=== PATIENT | male | born 1985 | race Caucasian/White ===

== ENCOUNTER 2020-08-25 20:29 | Emergency (ER) | payer MEDICAID, SELFPAY ==
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
[2020-08-25 20:44] VITALS: BP 119/77; PULSE 76; RESP 20; TEMP 37; O2SAT 98; BMI 27.1
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
[2020-08-25] MEDS: Acetaminophen 325 MG TABLET 650 MG PO (21:52)
[2020-08-25 22:28] VITALS: BP 123/87; PULSE 88; RESP 14; TEMP 36.7; O2SAT 99
== END 2020-08-25 23:22 | disposition other institution (70) ==
PROVIDERS: Emergency Provider Emergency Medicine
DX: S09.90XA Unspecified injury of head, initial encounter (principal); S00.03XA Contusion of scalp, initial encounter; Y00.XXXA Assault by blunt object, initial encounter; Y93.9 Activity, unspecified; Y92.9 Unspecified place or not applicable; Y99.9 Unspecified external cause status
CPT/HCPCS: 70450; 72125; 99284

== ENCOUNTER 2023-01-03 20:41 | Emergency (ER) | payer MEDICAID, SELFPAY ==
--- NOTE | 2023-01-03 20:43 | ED.GENADULT ---
HPI - General Adult General Chief complaint: General Medical Stated complaint: Bugs crawling in body Time Seen by Provider: 01/03/23 22:39 Source: patient Mode of arrival: ambulatory Limitations: no limitations History of Present Illness HPI narrative: 37-year-old male who presents emergency department for evaluation bugs under his skin. Patient states that he sees were arms and bugs under his skin. States that they are moving under his skin. Patient has been picking out these bugs. He denies using any street drugs specifically denied using cocaine, methamphetamine, heroin. He does have a history of anxiety and chronic back pain. He states that he takes Klonopin, hydroxyzine and gabapentin., Related Data Previous Rx's Medication Instructions Recorded permethrin 5 % topical cream 1 appl topical Q14D 2 doses #60 01/04/23 grams Allergies Allergy/AdvReac Type Severity Reaction Status Date / Time No Known Allergies Allergy Verified 08/25/20 20:54 [No Known Allergies*] Review of Systems Review of Systems: Yes all other systems are reviewed and are negative [facility] Past Medical History [facility] Narrative: Past medical history: Anxiety, chronic back pain social history: He denies tobacco, alcohol and drug use. Social History Social History Alcohol intake: current Alcohol intake frequency: holidays/special occasions only Smoked in Last 30 Days: Yes Use of substances other than those prescribed or required for medical reasons: Yes Substance Use Type: Marijuana Advance Directives: No Advance Directives Information Provided: No Physical Exam ED Vital Signs: Vital Signs - 24 hr 01/03/23 20:47 Temperature 98.1 F Pulse Rate 62 Respiratory Rate 18 Blood Pressure 131/81 Pulse Oximetry 98 Oxygen Delivery Method Room Air BMI result Body Mass Index 25.1 Vital signs were normal General: Patient is very anxious, he is agitated Skin: Patient has picked at multiple areas on his arms and hands where he has tried to dig out bugs. He is placed multiple samples on a piece of tissue paper to show me. There are no worms or bugs but he has piece of skin, fat and blood on the tissue paper. Course Course Course Narrative: This is a rapid medical exam: Additional HPI, ROS, PE not included below will be deferred to primary provider. Patient is a 37-year-old male presenting to the emergency department stating that a friend slept at his house two nights ago, today feels as though he has bugs crawling under his skin and throughout his body. States that he feels as though they are in his eyeballs, in his nose, in his ears. States that he is visualizing tiny insects all over his skin. Patient is hyperverbal in triage, unable to sit still, denies any alcohol or drug use. No obvious rashes or bites visible, patient repeatedly pointing to areas of dirt particles on his skin and stating that those are the bugs he is referring to. Medications Administered Discontinued Medications Generic Name Dose Route Start Last Admin Trade Name Peter PRN Reason Stop Dose Admin Bacitracin 1 appl 01/03/23 23:29 01/03/23 23:46 Bacitracin Oint 0.9 Gm Packet TOPICAL 01/03/23 23:30 1 appl ONCE ONE Administration Protocol Medical Decision Making Medical Decision Making MDM Narrative: 37-year-old male who presents emergency department for evaluation subcutaneous bugs/worms. 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 He denies any drug use however I suspect that he has probable using methamphetamine or cocaine which is causing the symptoms. I offered to give the patient anti anxiety medicine such as Ativan or hydroxyzine here in the emergency department but he states that he has these at home. The patient's wounds were cleaned and dressed with bacitracin and bandages. Patient was discharged home. Differential Diagnosis Differential diagnosis includes was not limited to delusional parasitosis, heroin use disorder, cocaine use disorder, methamphetamine use Discharge Plan Discharge Clinical Impression: Delusions of parasitosis Patient Disposition: Home, Self-Care Additional Instructions: There were no bugs in your skin. Sometimes when people are anxious or are doing drugs, they have a feeling like there are bugs and there skin and then start picking there skin. This is called delusional parasitosis. If your using street drugs you need to stop using them otherwise you will continue to have the symptoms. Take your or hydroxyzine as prescribed and that should help with anxiety. Follow-up with your doctor in 2 days. Please return to the emergency department if your symptoms get worse or if you develop any symptoms that are concerning to you. Prescriptions: No Action permethrin 5 % cream 1 appl topical Q14D Qty: 60 0RF Rx Instructions: apply second treatment 14 days after first treatment if live lice remain Interventions: ED Discharge Assessment Last Done: 01/03/23 23:50 Discharge Date/Time: 01/03/23 23:50
[2023-01-03 20:47] VITALS: BP 131/81; PULSE 62; RESP 18; TEMP 36.7; O2SAT 98; BMI 25.1
--- NOTE | 2023-01-03 21:47 | PC.NURSE ---
pt called junior copywriter to room, several crater shaped-open areas now present on pt forearms, pt sts that he is pulling the bugs out and they just go back in under (his) fingernails. junior copywriter observed several small chunks of skin on a tissue. enouraged pt not to pick at himself until evaluated by provider. pt continues to be anxious, hyper-verbal, perseverating on 2in in diam lump on right forearm, cool to touch, and hard. pt awaiting ED provider. open area were clensed with NS, and patted dry. no active bleeding at this time. call [facility] within reach
[2023-01-03] MEDS: Bacitracin Oint 0.9 GM PACKET 1 APPL TOPICAL (23:46)
--- NOTE | 2023-01-03 23:49 | PC.NURSE ---
This RN medicated at discharge, reviewed discharge instruction with pt only, pt verbalized understanding. no sign of distress.
== END 2023-01-03 23:50 | disposition home or self-care (01) ==
PROVIDERS: Emergency Provider Emergency Medicine Emergency Medical Services
DX: F22 Delusional disorders (principal); F12.980 Cannabis use, unspecified with anxiety disorder; F41.9 Anxiety disorder, unspecified
CPT/HCPCS: 99283

== ENCOUNTER 2023-01-04 02:47 | Emergency (ER) | payer MEDICAID, SELFPAY ==
[2023-01-04 02:55] VITALS: BP 128/88; BP 136/80; PULSE 90; PULSE 94; RESP 18; TEMP 37.1; O2SAT 95; O2SAT 98; BMI 25.1
--- NOTE | 2023-01-04 03:25 | PC.NURSE ---
PT BIBA from home. A/Ox3. Complains of bugs under his skin. EMS saw sign on apartment re: fumigation for bed bugs. Pt states he was seen 01/03/23 for the same issue. Pt uses marijuana occasionally last used 01/03/23. denies using other substances. receives suboxone. VSS. multiple self-inflicted lesions on bilateral forearms and right leg. Lesion on right forearm hardened and oscar. Call [facility] within reach
--- NOTE | 2023-01-04 03:46 | ED.GENADULT ---
HPI - General Adult General Chief complaint: General Medical Stated complaint: WORMS ARE COMING OUT OF SKIN Time Seen by Provider: 01/04/23 02:54 Source: patient Mode of arrival: ambulatory Limitations: no limitations History of Present Illness HPI narrative: 37-year-old male presents for seeing bugs on and underneath the skin. Symptoms started today. The symptoms are severe. Denies any itching or burning pain. He has never had this before. There has been no prior treatment. He has been picking at the skin significantly since he started seeing these insects. He denies any drug use. Patient denies any use of loose a gentle Axe. Patient denies any history of loosen a shins. Patient was in the emergency department earlier for an evaluation. Related Data Previous Rx's Medication Instructions Recorded permethrin 5 % topical cream 1 appl topical Q14D 2 doses #60 01/04/23 grams Allergies Allergy/AdvReac Type Severity Reaction Status Date / Time No Known Allergies Allergy Verified 08/25/20 20:54 [No Known Allergies*] Review of Systems Review of Systems: CONSTITUTIONAL: Denies weight loss, fever and chills. HEENT: Denies changes in vision and hearing. RESPIRATORY: Denies SOB and cough. CV: Denies palpitations no CP. GI: Denies abdominal pain, nausea, vomiting and diarrhea. : Denies dysuria and urinary frequency. MSK: Denies myalgia and joint pain. SKIN: Denies rash and pruritus. NEUROLOGICAL: Denies headache and syncope. PSYCHIATRIC: Denies recent changes in mood. Denies anxiety and depression. All other ROS are negative unless in HPI [facility] Social History Social History Alcohol intake: current Alcohol intake frequency: holidays/special occasions only Smoked in Last 30 Days: Yes Use of substances other than those prescribed or required for medical reasons: Yes Substance Use Type: Marijuana Advance Directives: No Advance Directives Information Provided: No Physical Exam ED Vital Signs: Vital Signs - 24 hr 01/04/23 02:55 Temperature 98.8 F Pulse Rate 94 Respiratory Rate 18 Blood Pressure 128/88 Pulse Oximetry 95 Oxygen Delivery Method Room Air BMI result Body Mass Index 25.1 GEN: Well developed, no acute distress, alert, oriented HEENT: Normocephalic, atraumatic, normal external ears, nose appears normal Eyes: Normal to appearance Neck: Supple, no lymphadenopathy Respiratory: Talks in complete sentences, no respiratory distress Extremities: No clubbing cyanosis or edema Neurologic: No focal neurologic deficits, cranial nerves 2-12 intact, gait normal Skin: No rash multiple excoriations, surrounding erythema consistent with inflammatory changes, no visible insects or burrowing. Medical Decision Making Medical Decision Making [facility] Narrative: 37-year-old male presents with seeing insects on the skin. Symptoms started today. I do not see any of these insects on his skin or underneath the skin. There is no burrowing. He has multiple significant excoriations on his skin. There is no evidence of cellulitis. I did inform him that these excoriations are certainly high risk for cellulitis of the continues doing so. I have recommended washing gently with soap and water and the application of bacitracin. It is quite possible that these represent actual hallucinations. He denies any cocaine use to suggest cocaine hallucinations. At this point, I will treat the patient is if he is actually seeing some form of an insect will start him on permethrin. Should the symptoms continue, I have recommended re-evaluation and possible behavioral health consultation. Differential Diagnosis Differential Diagnoses: The differential diagnosis associated with the presentation includes (Scabies, bedbugs, hallucinations) Prescription Management I considered prescription management with: Antibiotic Discharge Plan Discharge Clinical Impression: Multiple excoriations Patient Disposition: Home, Self-Care Instructions: Abrasion (ED) Prescriptions: New permethrin 5 % cream 1 appl topical Q14D Qty: 60 0RF Rx Instructions: apply second treatment 14 days after first treatment if live lice remain Referrals: Physician,Unknown J [Primary Care Provider] - (Primary care provider in 1 week)
== END 2023-01-04 05:25 | disposition home or self-care (01) ==
PROVIDERS: Emergency Provider Emergency Medicine
DX: F42.4 Excoriation (skin-picking) disorder (principal)
CPT/HCPCS: 99283; 99284

== ENCOUNTER 2025-02-27 09:36 | Outpatient (REF) | payer MEDICAID, SELFPAY ==
--- OUTSIDE RECORDS SUMMARY | 2025-02-18 17:00 | XMS_ITS ---
Author Organization [facility] Address [address] [place] [address] Care Team Providers Care Tip Stitcher Name Role Phone [facility] Primary Care Provider [phone] Lucio Grant Unavailable [phone] Migration, Provider Unavailable Unavailable REASON FOR VISIT Multum To Medispan Conversion Encounter Medications Medication SIG (Take, Route, Frequency, Duration) Notes Start Date End Date Status Albuterol Sulfate HFA 108 (90 Base) MCG/ACT 2 puff(s) inhaled 4 times a day for 30 days 04/06/2017 Active Gabapentin 800 MG 1 tab(s) orally 3 ti mes a day for 30 Active Prazosin HCl 2 MG 2 cap(s) orally qhs for 7 day(s) Active Latuda 60 MG TAKE 1 TABLET BY EVERY DAY WITH FOOD for 30 Activ e SEROquel 100 MG 1 tab(s) orally 3 ti mes a day for 30 days Active cloNIDine HCl 0.1 MG 1 tab(s) orally bid as needed for 30 days Active Encounters Encounter Location Date Provider Diagnosis [address] [id number] 02/18/2025 Provider Migration Plan Of Treatment No Information Progress Notes * Ozzie SIGALADOB:1985 (39 yo M)Acc No.[id number]:02/18/2025 Patient: Dionte BREEFrederick EMERSONian Provider: :1985 A ge:39 Y S ex:Male Date:02/18/2025 Address:[address] [place] [address] [place], [place], [id number] Pcp:[facility] Subjective: * Chief Complaints: * 1 . Multum To Medispan Conversion Encounter. * Medical History: * Medications: T aking Albuterol Sulfate HFA 108 (90 Base) MCG/ACT Aerosol Solution 2 puff(s) inhaled 4 times a day , Taking cloNIDine HCl 0.1 MG Tablet 1 tab(s) orally bid as needed , Taking Prazosin HCl 2 MG Capsule 2 cap(s) orally qhs , Taking Latuda 60 MG Tablet TAKE 1 TABLET BY MOUTH EVERY DAY WITH FOOD , Taking SEROquel 100 MG Tablet 1 tab(s) orally 3 times a day , Taking Gabapentin 800 MG Tablet 1 tab(s) orally 3 times a day Objective: * Vitals: Assessment: Plan: * Treatment: * Images: Billing Information: * Visit Code: * Procedure Codes: * Electronic signature of Prov ider Migration on 02/27/2025 at 11:17 AM EDT Sign off status: Pending * Provider: Date: 02/18/2025 Generated for Mary samano/Martín/Gage on: 02/27/2025 11:17 AM EDT
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
[2025-02-27 14:40] LABS: Alanine Aminotransferase 39 U/L (0-40); Albumin Level 3.9 g/dL (3.5-5.0); Alkaline Phosphatase 85 U/L (39-117); Anion Gap 11 (12-20); Aspartate Amino Transferase 161 U/L (5-37); Blood Urea Nitrogen 10 mg/dL (9-16); Calcium 9.0 mg/dL (8.4-10.2); Carbon Dioxide 26 mmol/L (22-29); Chloride 107 mmol/L (96-108); Cholesterol 209 mg/dL (<200); Estimated Glomerular Filt Rate > 60; HDL Cholesterol 37 mg/dL (>40); Potassium 4.0 mmol/L (3.3-5.1); Sodium 140 mmol/L (135-145); Total Protein 6.9 g/dL (6.5-8.0); Triglycerides 176 mg/dL (<150)
[2025-02-28 13:03] LABS: Syphilis Screen Nonreactive (Nonreactive)
[2025-02-28 13:49] LABS: HBS Num1 > 1000.00 mIU/mL (0-7.99); HBc Num1 0.10 S/CO (0.00-0.79); HBsAGNum1 0.47 S/CO (0.00-0.99); HIV Num 1 0.06 S/CO (0.00-0.99); Hepatitis B Surface Antigen Negative (Negative); ~HepC Num1 0.22 S/CO (0.00-0.79); ~Hepatitis B Surface Antibody REACTIVE (Nonreactive); ~Hepatitis C Antibody Nonreactive (Nonreactive)
== END 2025-02-27 09:37 | disposition home or self-care (01) ==
LOC: HO.CHCLDS 09:36
PROVIDERS: Visit Provider Registered Nurse
DX: Z00.00 Encounter for general adult medical examination without abnormal findings (principal); Z11.59 Encounter for screening for other viral diseases; Z11.4 Encounter for screening for human immunodeficiency virus [HIV]; Z11.3 Encounter for screening for infections with a predominantly sexual mode of transmission; Z87.898 Personal history of other specified conditions
CPT/HCPCS: 36415; 80053; 80061; 86704; 86706; 86780; 86803; 87340; 87389